=== PATIENT | female | born 1950 | race Caucasian/White ===

== ENCOUNTER 2019-08-02 12:01 | Outpatient (CLI) | payer MEDICARE, OTHER, SELFPAY ==
--- NOTE | ~2019-08-02 | MR_ITS ---
EXAMINATION: MR lumbar spine wo con DATE: 08/02/2019 13:52 INDICATION: Low back and bilateral leg pain TECHNIQUE: Magnetic resonance imaging (MRI) of the lumbar spine was performed without intravenous con trast. Sequences included sagittal T2-weighted FSE, sagittal T2-weighted FS FSE, sagittal T1-weighted FSE, and axial T2-weighted FSE. COMPARISON: None FINDINGS: Mild S-shaped thoracolumbar scoliosis with lower thoracic dextrocurvature and lumbar levocurvature. S agittal alignment is normal. Vertebral body heights are normal. Normal marrow signal. Disc heights a re normal. The conus medullaris terminates at L2. There is normal signal in the caudal spinal cord. B aastrup disease with degenerative changes along with superimposed superior and inferior cortices of t he spinous processes. On the scouts images there is ankylosis across the bilateral sacroiliac joints. 12 mm T2 hyperintense right renal cyst. Paravertebral soft tissues are unremarkable. The following di sc levels are specifically discussed: T12-L1: The disc does not extend beyond the endplate margin. There is severe bilateral facet joint os teoarthritis. There is no neural foraminal stenosis. There is no central canal stenosis. L1-L2: The disc does not extend beyond the endplate margin. There is moderate right and severe left f acet joint osteoarthritis. There is no neural foraminal stenosis. There is no central canal stenosis. L2-L3: The disc does not extend beyond the endplate margin. There is severe bilateral facet joint ost eoarthritis. There is no neural foraminal stenosis. There is no central canal stenosis. L3-L4: The disc does not extend beyond the endplate margin. There is severe bilateral facet joint ost eoarthritis. There is no neural foraminal stenosis. There is no central canal stenosis. L4-L5: The disc does not extend beyond the endplate margin. There is severe bilateral facet joint ost eoarthritis. There is no neural foraminal stenosis. There is no central canal stenosis. L5-S1: The disc does not extend beyond the endplate margin. There is severe bilateral facet joint ost eoarthritis. There is no neural foraminal stenosis. There is no central canal stenosis. IMPRESSION: 1. 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 This remain relative ly preserved with no significant central canal or neural foraminal stenosis. 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 Reviewed, dictated and finalized at location A. IMPRESSION: 1. 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 This remain relatively preserved with no significant central canal or neural foraminal stenosis. 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
--- NOTE | ~2019-08-02 | US_ITS ---
EXAMINATION: US art doppler w press LE BI DATE: 08/02/2019 13:24 INDICATION: Bilateral lower limb pain. Peripheral vascular disease. TECHNIQUE: Segmental pressures and plethysmographic and Doppler waveforms of the brachial and lower e xtremity arteries were obtained. COMPARISON: None. FINDINGS: Right and left brachial artery pressures of 123 mm Hg and 127 mm Hg, respectively, are concordant (no rmal difference <= 30 mmHg). The right and left high-thigh pressure indices are 1.16 and 1.35, respec tively (normal > 1.2). The right ankle-brachial index (KELLY) is 1.04 (normal >= 0.9-1). The right great toe-brachial index (T BI) is 0.93 (normal >= 0.6-0.8). The right lower extremity segmental pressure gradients are normal (n ormal gradients <= 20-30 mmHg between adjacent levels on the same leg or the same levels on the two l egs). Arterial waveforms are biphasic at the right common femoral artery and triphasic in the more di stal arteries with brisk systolic upstrokes throughout triphasic. The left KELLY is 1.07. The left TBI is 0.94. The left lower extremity segmental pressure gradients are normal. Arterial waveforms are biphasic at the left common femoral artery and triphasic in the more distal arteries with brisk systolic upstrokes throughout. IMPRESSION: 1. Normal KELLY's and TBI's bilaterally. No significant occlusive disease. Reviewed, dictated and finalized at location A.
== END 2019-08-02 12:02 | disposition home or self-care (01) ==
PROVIDERS: PCP Family Medicine; Visit Provider Psychiatry & Neurology Neurology
DX: M79.606 Pain in leg, unspecified (principal); I73.9 Peripheral vascular disease, unspecified; M85.88 Other specified disorders of bone density and structure, other site
CPT/HCPCS: 72148; 93923

== ENCOUNTER 2020-11-23 15:53 | Emergency (ER) | payer MEDICARE, OTHER, SELFPAY ==
[2020-11-23 16:00] VITALS: BP 152/56; PULSE 58; RESP 16; TEMP 36.3; O2SAT 99
--- NOTE | 2020-11-23 16:25 | ED.URI ---
HPI - URI/Sore Throat General Chief Complaint: Upper Respiratory Infection Stated Complaint: Nose drainage and sneezing Time Seen by Provider: 11/23/20 16:27 Source: patient, RN notes reviewed and old records reviewed Mode of arrival: ambulatory Limitations: no limitations History of Present Illness HPI Narrative: 70 year old female who presents to [facility] care with complaints of constant clear nasal drainage and sneezing for the past 5-6 days. She states that she has taken Claritin and used Flonase with no improvement in her symptoms.Patient denies any ear pain, acute cough or any sore throat, denies any known fevers, no chills or sweats. MD elicited complaint: rhinorrhea and other (sneezing) Pertinent past history: COPD, seasonal allergies and other (Former smoker quit September2020 after smoking 50 years) Onset (ago): day(s) (5-6) Consistency: constant Description of mucous: clear Able to tolerate fluids by mouth: Yes Exacerbating factors: nothing Relieving factors: nothing Associated symptoms: denies other symptoms Treatments prior to arrival: antibiotics (Flonase and Claritin) Related Data Home Medications Medication Instructions Recorded Confirmed diltiazem HCl 120 mg 120 mg PO DAILY 08/24/20 11/23/20 capsule,extended release 24 hr metoprolol succinate 50 mg 50 mg PO DAILY 08/24/20 11/23/20 tablet,extended release 24 hr warfarin 4 mg tablet 8 mg PO DAILY 08/24/20 11/23/20 carbamazepine 200 mg PO BID 11/23/20 11/23/20 furosemide 40 mg PO DAILY 11/23/20 11/23/20 rosuvastatin 20 mg PO DAILY 11/23/20 11/23/20 sacubitril-valsartan [Entresto] 1 tablet PO BID 11/23/20 11/23/20 Allergies Allergy/AdvReac Type Severity Reaction Status Date / Time No Known Allergies Allergy Verified 11/23/20 16:13 Review of Systems Review of Systems: Narrative: CONSTITUTIONAL: Denies fever, chills, or sweats. EYES: Denies visual changes, redness, or discharge. ENT: Positive for constant clear rhinorrhea, no congestion, sore throat, or otalgia. CARDIOVASCULAR: Denies chest pain, palpitations, or edema. RESPIRATORY: Denies acute cough or dyspnea. GASTROINTESTINAL: Denies abdominal pain, nausea, vomiting, or diarrhea. GENITOURINARY: Denies dysuria or hematuria. SKIN: Denies rash or itching. MUSCULOSKELETAL: Denies back pain, joint pain, or myalgia. NEUROLOGIC: Denies headache, numbness, or weakness. PSYCHIATRIC: Denies anxiety or depression. All systems reviewed & are unremarkable except as noted in HPI and below PMFSH Past Medical History Medical History Anemia COPD (chronic obstructive pulmonary disease) with emphysema Hypertension Rheumatic fever Upper gastrointestinal bleed Warfarin anticoagulation Surgical History Surgical History (Updated 11/26/20 @ 08:41 by Kamala Kern NP) H/O repair of left rotator cuff History of tonsillectomy Mitral valve replaced (~1999) Family History Family History Sibling Asthma Family history of cardiovascular disease Family history of coronary artery disease Family history of malignant neoplasm of breast in first degree relative Mother Family history of aortic aneurysm, Onset Age: 68 Father Family history of malignant melanoma Social History Social History Smoking status: Former smoker Second hand tobacco smoke exposure: No Additional smoking assessment comments: quit September of 2020 after smoking 50 years Alcohol intake: current Substance use: never Gender identity (if verbalized by the patient): Female Comments At time of signature, agree with nursing past medical, surgical, social and family history. There is no relevant family history pertinent to the presenting complaint Exam Narrative: Exam Narrative: GENERAL: Well-appearing, well-nourished, and in no acute distress. HEAD: Normocephalic, atraumatic
== END 2020-11-23 16:55 | disposition home or self-care (01) ==
PROVIDERS: Emergency Provider Registered Nurse; PCP Family Medicine
DX: Z53.21 Procedure and treatment not carried out due to patient leaving prior to being seen by health care provider (principal)
CPT/HCPCS: 99211; G0463